=== PATIENT | female | born 1995 | race Caucasian/White ===

== ENCOUNTER 2019-02-21 13:16 | Emergency (ER) | payer SELFPAY ==
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
== END 2019-02-21 14:57 | disposition home or self-care (01) ==
LOC: ER 13:16
DX: S06.0X0A Concussion without loss of consciousness, initial encounter (principal); R51 Headache; V43.52XA Car driver injured in collision with other type car in traffic accident, initial encounter; Y92.410 Unspecified street and highway as the place of occurrence of the external cause
CPT/HCPCS: 99282